=== PATIENT | male | born 2000 | race Caucasian/White ===

== ENCOUNTER 2019-06-18 13:52 | Emergency (ER) | payer OTHER ==
[2019-06-18] MEDS ORDERED: Rifampin 300 MG Cap PO ONE (15:20)
--- NOTE | 2019-06-18 15:29 | EDM.PDOC ---
ED [facility] GENERAL MEDICAL PROBLEM - General Chief Complaint: General Stated Complaint: EXPOSURE Time Seen by Provider: 06/18/19 15:26 Source of Information: Reports: Patient History Limitations: Reports: No Limitations - History of Present Illness INITIAL COMMENTS - FREE TEXT/NARRATIVE: Patient is 19-year-old male with no past medical history presenting with chief complaint of exposure to possible meningitis. Patient works at the [employer] and was exposed to a patient during transport. Patient is requesting prophylaxis. Patient is allergic to cephalosporins. No complaints or symptoms at this time. In addition to that documented in the HPI above, the additional ROS was obtained : Constitutional: Denies fevers or chills Eyes: Denies vision changes ENMT: Denies sore throat CV: Denies chest pain Resp: Denies SOB GI: Denies vomiting or diarrhea : Denies painful urination MSK: Denies recent trauma Skin: Denies new rashes Neuro: Denies new numbness or tingling or weakness Endocrine: Denies unexpected weight loss Heme: Denies bleeding disorders I have reviewed the triage vital signs Const: Well nourished, well developed, appears stated age Eyes: PERRL, no conjunctival injection HENT: NCAT, Neck supple without meningismus CV: RRR, Warm, well-perfused extremities RESP: CTAB, Unlabored respiratory effort GI: soft, non-tender, non-distended, no masses MSK: No gross deformities appreciated Skin: Warm, dry. No rashes Neuro: Alert, architecture internship II-XII grossly intact. Sensation and motor function of extremities grossly intact. Psych: Appropriate mood and affect Assessment and plan: Patient is 19-year-old male with Neisseria meningitis exposure requesting prophylaxis. Patient has allergy to cephalosporins and there is concern for high rate of resistance to ciprofloxacin in this area. Patient will be treated with rifampin. Patient given return precautions. All questions addressed and answered. Patient is in plan. - Related Data Allergies Allergy/AdvReac Type Severity Reaction Status Date / Time cefdinir [From Omnicef] Allergy Other Verified 06/18/19 14:17 Home Meds: Home Meds . [No Known Home Meds] 06/18/19 [History] Past Medical History - Past Health History Medical/Surgical History: Denies Medical/Surgical History Social & Family History - Family History Family Medical History: Noncontributory - Tobacco Use Smoking Status *Q: Never Smoker Second Hand Smoke Exposure: No - Recreational Drug Use Recreational Drug Use: No ED ROS GENERAL - Review of Systems Review Of Systems: See Below ED EXAM, GENERAL - Physical Exam Exam: See Below Course - Vital Signs Last Recorded V/S: Last Vital Signs Temp 36.4 C 06/18/19 14:15 Pulse 69 06/18/19 14:15 Resp 16 06/18/19 14:15 BP 136/87 06/18/19 14:15 Pulse Ox 98 06/18/19 14:15 - Orders/Labs/Meds Meds: Medications Discontinued Medications Generic Name Dose Route Start Last Admin Trade Name Freq PRN Reason Stop Dose Admin Rifampin 600 mg 06/18/19 15:20 Rifampin PO 06/18/19 15:21 ONETIME ONE Departure - Departure Time of Disposition: 15:28 Disposition: Home, Self-Care 01 Clinical Impression: Exposure to meningitis - Discharge Information Referrals: Jimenez Fontaine MD [Primary Care Provider] - Sepsis Event Note - Evaluation Sepsis Screening Result: No Definite Risk - Focused Exam Vital Signs: Vital Signs Temp Pulse Resp BP Pulse Ox 06/18/19 14:15 36.4 C 69 16 136/87 98 Date Exam was Performed: 06/18/19 Time Exam was Performed: 15:26
== END 2019-06-18 15:48 | disposition home or self-care (01) ==
LOC: MW.ED 13:52
DX: Z20.811 Contact with and (suspected) exposure to meningococcus (principal); Z88.1 Allergy status to other antibiotic agents
CPT/HCPCS: 99283; A9270; 99282